=== PATIENT | male | born 1935 | race Caucasian/White ===

== ENCOUNTER 2019-11-15 18:30 | Observation (INO) | payer MEDICARE, OTHER ==
[2019-11-15] MEDS ORDERED: ALUM & MAG HYDROX-SIMETHICONE 30 ML, LIDOCAINE VISCOUS 2% 15 ML PO ONE ×2 (18:39)
[2019-11-15] MEDS ORDERED: PANTOPRAZOLE SODIUM IV 40 MG VIAL IV ONE (18:39)
[2019-11-15] MEDS ORDERED: METOPROLOL TARTRATE 25 MG TAB PO ONE (18:39)
[2019-11-15] MEDS ORDERED: ASPIRIN TABLET 325 MG TAB PO ONE (18:39)
--- NOTE | 2019-11-15 19:18 | RAD ---
XR CHEST 1 VIEW HISTORY: Chest pain. COMPARISON: None. FINDINGS: The heart size is enlarged. There is no pulmonary vascular congestion. No consolidation, pleural effusion, or pneumothorax is seen. No acute bony findings are seen. IMPRESSION: No evidence of acute cardiopulmonary disease. Electronically signed by: Aaron Luque MD 11/15/2019 7:17 PM CDT
[2019-11-15] MEDS ORDERED: METOPROLOL TARTRATE 50 MG TAB PO ONE (22:40)
[2019-11-15] MEDS ORDERED: SUCRALFATE 1 GM/10 ML 1 GM UD PO ONE (22:41)
--- NOTE | 2019-11-15 22:48 | ED.PDOC ---
History of Present Illness - General Chief Complaint: Chest Pain/ND Stated Complaint: CP Time Seen by Provider: 11/15/19 18:31 Source: patient Exam Limitations: no limitations - History of Present Illness Initial Comments: The patient is an 84-year-old male presenting to the emergency room secondary to chest pain that is been intermittent for the last 24 hours. Chest pain had gotten to about an 8 out of 10 at its worst about an hour prior to arrival. The patient reports that he drank a Coke and belched and most of the discomfort went away immediately. No nausea or vomiting. He does have a cardiac history. He did have a stent placed more than 5 years ago in the [facility]. He does take numerous cardiac medications. He has had a history of reflux past as well. No abdominal pain. No vomiting. No syncope. Chest pain is somewhat pressure-like and burning. No shortness of breath. Timing/Duration: 24 hours, intermittent, gone Severity: moderate Worsening Factors: other Associated Symptoms: chest pain Allergies/Adverse Reactions: Allergies NO KNOWN ALLERGY Allergy (Verified 11/15/19 18:39) Home Medications: Ambulatory Orders Aspirin (Buffered) 325 mg [Bufferin 325 mg] 325 mg PO DAILY 11/15/19 Finasteride 5 mg PO DAILY 11/15/19 Glucosamine 1,000 mg PO DAILY 11/15/19 Hydrochlorothiazide 12.5 mg PO DAILY 11/15/19 Levothyroxine Sodium 88 mg PO DAILY 11/15/19 Losartan Potassium 100 mg PO DAILY 11/15/19 Metoprolol Succinate [Metoprolol Succinate ER] 50 mg PO BID 11/15/19 Multivitamin 1 tablet PO DAILY 11/15/19 Simvastatin 20 mg PO DAILY 11/15/19 Verapamil HCl [Verapamil HCl Sr] 240 mg PO DAILY 11/15/19 Review of Systems - Review of Systems Constitutional: States: no symptoms reported EENTM: States: no symptoms reported Respiratory: States: no symptoms reported Cardiology: States: chest pain Gastrointestinal/Abdominal: States: no symptoms reported Genitourinary: States: no symptoms reported Musculoskeletal: States: no symptoms reported Skin: States: no symptoms reported Neurological: States: no symptoms reported Endocrine: States: no symptoms reported All other Systems: No Change from Baseline Past Medical History (General) - Patient Medical History Hx Stroke: No Hx Dementia: No Hx Asthma: No Hx of COPD: No Hx Cardiac Disorders: Yes - stent Hx Congestive Heart Failure: No Hx Thyroid Disease: No Hx Diabetes: No - Social History Hx Tobacco Use: Yes Family Medical History - Family History Mother Family History: Unknown Physical Exam - Physical Exam General Appearance: Alert, Comfortable, No apparent distress Eye Exam: bilateral normal Ears, Nose, Throat: hearing grossly normal, normal pharynx Neck: full range of motion, supple Respiratory: chest non-tender, lungs clear, normal breath sounds, no respiratory distress, no accessory muscle use Cardiovascular/Chest: normal peripheral pulses, regular rate, rhythm, no edema Peripheral Pulses: radial,right: 2+, radial,left: 2+ Gastrointestinal/Abdominal: non tender, soft Rectal Exam: deferred Back Exam: no CVA tenderness, no vertebral tenderness Extremity: normal range of motion, non-tender, normal inspection, no pedal edema, normal capillary refill 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 The patient does have a cardiac history. The first 2 sets of cardiac enzymes are negative. He is currently chest pain-free. The patient is receiving acid reducing medications and he is also received doses of aspirin and Lovenox. EKG is reassuring. Chest x-ray is reassuring. Given the patient's risk factors he will be brought in for the longer rule out. Continue telemetry monitoring. Patient is in agreement with the plan. Admit for continued care. The patient does have some elevated blood pressures here. He will be receiving his nightly doses of metoprolol and verapamil here. 11/15/19 22:51 chika gagnon [id number] - Results/Orders Results/Orders: Laboratory Tests 11/15/19 11/15/19 11/15/19 18:45 18:45 18:45 WBC 6.1 RBC 4.59 L Hgb 14.9 Hct 43.4 MCV 94.6 H MCH 32.4 H MCHC 34.3 RDW 13.7 Plt Count 189 MPV 7.8 Absolute Neuts (auto) 3.60 Absolute Lymphs (auto) 1.80 Absolute Monos (auto) 0.40 Absolute Eos (auto) 0.20 Absolute Basos (auto) 0.00 Neutrophils % 60.0 Lymphocytes % 29.5 Monocytes % 6.7 Eosinophils % 3.3 Basophils % 0.5 PT 10.3 INR 1.04 PTT (SP) 25.2 D-Dimer, Quantitative 234.0 Sodium 139 Potassium 3.5 L Chloride 101 Carbon Dioxide 28 Anion Gap 13.5 BUN 12 Creatinine 0.94 BUN/Creatinine Ratio 12.8 Random Glucose 140 H Serum Osmolality 279.6 Calcium 9.3 Magnesium 1.8 Total Bilirubin 0.9 AST 24 ALT 18 Alkaline Phosphatase 64 Creatine Kinase 77 CK-MB (CK-2) 2.8 CK-MB (CK-2) % Not Reportable Troponin I < 0.02 B-Natriuretic Peptide 80.6 Serum Total Protein 7.4 Albumin 4.3 Globulin 3.1 Albumin/Globulin Ratio 1.4 Amylase 47 Lipase 28 TSH 6.64 H 11/15/19 21:52 WBC RBC Hgb Hct MCV MCH MCHC RDW Plt Count MPV Absolute Neuts (auto) Absolute Lymphs (auto) Absolute Monos (auto) Absolute Eos (auto) Absolute Basos (auto) Neutrophils % Lymphocytes % Monocytes % Eosinophils % Basophils % PT INR PTT (SP) D-Dimer, Quantitative Sodium Potassium Chloride Carbon Dioxide Anion Gap BUN Creatinine BUN/Creatinine Ratio Random Glucose Serum Osmolality Calcium Magnesium Total Bilirubin AST ALT Alkaline Phosphatase Creatine Kinase 68 CK-MB (CK-2) 2.6 CK-MB (CK-2) % Not Reportable Troponin I < 0.02 B-Natriuretic Peptide Serum Total Protein Albumin Globulin Albumin/Globulin Ratio Amylase Lipase TSH Chest x-ray showed no acute pathology. EKG showed normal sinus rhythm at 65 bpm normal axis. Early right bundle branch block. Normal R wave progression. No ST segment or T wave changes indicative of acute ischemia. Departure - Departure Clinical Impression: Uncontrolled hypertension Chest pain Qualifiers: Chest pain type: unspecified Qualified Code(s): R07.9 - Chest pain, unspecified Disposition: Admit Patient Departure Forms: ED Discharge - Pt. Copy, Patient Portal Self Enrollment Referrals: JOSH STODDARD [Primary Care Provider] - 1-2 Weeks Home Medications: Ambulatory Orders Aspirin (Buffered) 325 mg [Bufferin 325 mg] 325 mg PO DAILY 11/15/19 Finasteride 5 mg PO DAILY 11/15/19 Glucosamine 1,000 mg PO DAILY 11/15/19 Hydrochlorothiazide 12.5 mg PO DAILY 11/15/19 Levothyroxine Sodium 88 mg PO DAILY 11/15/19 Losartan Potassium 100 mg PO DAILY 11/15/19 Metoprolol Succinate [Metoprolol Succinate ER] 50 mg PO BID 11/15/19 Multivitamin 1 tablet PO DAILY 11/15/19 Simvastatin 20 mg PO DAILY 11/15/19 Verapamil HCl [Verapamil HCl Sr] 240 mg PO DAILY 11/15/19 Decision To Admit - Decistion To Admit Decision to Admit Reason: Medical Nature Decision to Admit Date: 11/15/19 Decision to Admit Time: 22:52
[2019-11-15] MEDS ORDERED: ENOXAPARIN SODIUM 40 MG/0.4 ML SYG SUBCU ONE (23:15)
[2019-11-15] MEDS ORDERED: ENOXAPARIN SODIUM 100 MG/ML SYG SUBCU ONE (23:15)
[2019-11-15] MEDS ORDERED: VERAPAMIL ER 120 MG TAB PO ONE (23:23)
[2019-11-16] MEDS ORDERED: MORPHINE SULFATE INJ 10 MG/ML VIAL IV PRN (01:49)
[2019-11-16] MEDS ORDERED: NITROGLYCERIN 0.4 MG 25 EA TAB SL PRN (01:49)
[2019-11-16] MEDS ORDERED: ACETAMINOPHEN 325 MG TAB PO PRN (01:49)
[2019-11-16] MEDS ORDERED: SODIUM CHLORIDE 0.9% (FLUSH) 10 ML SYG IV PRN (01:49)
[2019-11-16] MEDS ORDERED: IV SET AND CAP CHANGE INJ INJ SCH (02:00)
[2019-11-16] MEDS ORDERED: LEVOTHYROXINE SODIUM 0.088 MG TAB ONE (05:17)
[2019-11-16] MEDS ORDERED: LEVOTHYROXINE SODIUM PO SCH (06:30)
[2019-11-16] MEDS ORDERED: LEVOTHYROXINE SODIUM 0.088 MG TAB PO SCH (06:30)
[2019-11-16] MEDS ORDERED: PANTOPRAZOLE SODIUM IV 40 MG VIAL IV SCH (06:30)
[2019-11-16] MEDS ORDERED: hydroCHLOROthiazide 12.5 MG CAP PO SCH (09:00)
[2019-11-16] MEDS ORDERED: SODIUM CHLORIDE 0.9% (FLUSH) 10 ML SYG IV SCH (09:00)
[2019-11-16] MEDS ORDERED: LOSARTAN POTASSIUM 100 MG TAB PO SCH (09:00)
[2019-11-16] MEDS ORDERED: FINASTERIDE 5 MG TAB PO SCH (09:00)
[2019-11-16] MEDS ORDERED: VERAPAMIL ER 120 MG TAB PO SCH (09:00)
[2019-11-16 09:51] VITALS: BP 153/74; TEMP 97; O2SAT 95
--- NOTE | 2019-11-16 18:12 | SSS ---
SUPERVISING PHYSICIAN: Oscar Hobson M.D. CHIEF COMPLAINT: Chest pain. ADMISSION DIAGNOSIS: 1. Chest pain. 2. Uncontrolled hypertension. 3. Hypothyroidism. DISCHARGE DIAGNOSIS: 1. Chest pain, negative for acute coronary syndrome with troponins being negative. No changes in EKG. The patient pain free, etiology uncertain, likely related to gastric distention but negative for acute coronary syndrome. 2. Hypertension, chronic, controlled. 3. Hypothyroidism on supplementation with elevated TSH. HISTORY OF PRESENT ILLNESS: Mr. Brian is an 84 year-old male patient with a history of hypertension and hypothyroidism that presents to the Emergency Room secondary to chest pain that had been intermittent for 24 hours prior to his admission. He endorsed that his chest pain had gotten to about an 8/10 at its worst about an hour prior to arrival. He drank a Coke, belched and had almost instant relief. He had no nausea or vomiting or diaphoresis. 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 He has had a history apparently of gastroesophageal reflux disease and was on a proton pump inhibitor at one point, but was taken off several years previously. He denied any nausea, vomiting, diarrhea, abdominal pains, any syncope. He describes the chest pain more of a pressure-like and burning, and again was relieved with belching after drinking a Coke. His initial workup in the Emergency Room showed his troponins were all within normal limits at less than 0.02 times 2 prior to admission. TSH was a little elevated at 6.64 but he is on thyroid medicine for hypothyroidism. A chest x-ray showed no evidence of acute cardiopulmonary disease as per radiology interpretation for a single view chest. His initial EKG in the Emergency Room showed a normal sinus rhythm at 65 [id number] with a right bundle branch block. No indication of an ST segment or T wave changes to indicate acute ischemia. Initially on presentation to the Emergency Room, his vital signs showed he was hypertensive with a blood pressure of 184/96, heart rate 60, satting 97% on room air. In the Emergency Room, he was given Verapamil, Carafate and some Protonix. He was also given a dose of Lopressor and some morphine. Again, his symptoms did resolve shortly after admission to the Emergency Room but given his advanced age and previous history of stent and the nature of his complaint being chest pains, he was placed in observation for attempted rule out to ensure he was negative for acute coronary syndrome. PAST MEDICAL HISTORY: 1. Hypertension. 2. Hypothyroidism. PAST SURGICAL HISTORY: No major surgeries listed other than: 1. Bilateral cataracts. 2. Stent placement 5 years previous. HOME MEDICATIONS: 1. Levothyroxine 88 mcg daily. 2. Verapamil 240 mg daily. 3. Simvastatin 20 mg daily. 4. Metoprolol 50 mg b.i.d. 5. Losartan 100 mg daily. 6. Hydrochlorothiazide 12.5 mg daily. 7. Aspirin 81 mg daily. 8. Multivitamin daily. 9. Glucosamine 1,000 mg daily. 10. Finasteride 5 mg daily. ALLERGIES: NO KNOWN DRUG ALLERGIES. FAMILY HISTORY: Father at age 52 secondary to a myocardial infarction. Mom at age 90 from advanced age. He has 4 boys, one that is . 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 He currently lives in [place]. He is . He has no history of tobacco or alcohol usage. Denies any illicit drug use. REVIEW OF SYSTEMS: CONSTITUTIONAL: Denies any fevers, chills, general malaise or unexplained weight loss. HEENT: Denies any headaches, vision changes, sore throat, ear aches, nasal congestion. RESPIRATORY: Denies any shortness of breath, coughing or wheezing. CARDIOVASCULAR: Chest pains as noted in History of Present Illness. GASTROINTESTINAL: Denies any nausea, vomiting, diarrhea, constipation or abdominal pain. GENITOURINARY: Denies any dysuria, hematuria, polyuria. MUSCULOSKELETAL: Denies any joint swelling or arthralgias. SKIN: Denies any lesions, rashes, moles or unexplained changes. NEUROLOGIC: Denies any ataxia, seizures, syncopal episodes or other focal neurological or sensory deficits. ENDOCRINE: Denies any polydipsia or polyphagia or other symptoms. HEMATOLOGIC: Denies any unexplained bleeding, bruising or transfusion reactions. PHYSICAL EXAMINATION: VITAL SIGNS: Initially on presentation to the Emergency Room, temperature 96.7, pulse 60, blood pressure 184/96, satting 97% on room air. On discharge, temperature 97, pulse 53, blood pressure 153/74, respirations 20, satting 95% on room air. Admission weight was 103.8 kg. Body mass index was 31. GENERAL: At time of examination and on discharge, the patient was resting comfortably. Did not appear to be in any distress. He had no complaints. He was alert. HEENT: Tympanic membranes clear bilaterally. Oropharynx is pink, moist without any lesions. NECK: Supple, nontender with full range of motion. No jugular venous distention noted. CHEST: Clear to auscultation bilaterally without any rhonchi, wheezes or rales. CARDIOVASCULAR: Regular rate and rhythm without any appreciable murmurs, gallops, or rubs. ABDOMEN: Soft, nontender. Positive bowel sounds. BACK: Without any CVA or vertebral tenderness. EXTREMITIES: Without any clubbing, cyanosis or edema. NEUROLOGIC: He is alert and oriented times three. Cranial nerves II-XII are grossly intact. Facial features are symmetrical. Extraocular movements are within normal limits. There is no nystagmus noted. SKIN: Warm, pink and dry. LABORATORY: White count 6,100, hemoglobin 14.9, hematocrit 43.4. RBC indices were showing a macrocytosis with an MCV of 94, MCH 32, platelet count 189,000. Differential showed to be without a left shift. Coagulation studies showed normal PT, PTT and D-dimer. Chemistries just showed a mildly low potassium at 3.5, glucose 140. Liver functions were all within normal limits. Creatinine 0.94. He had 3 sets of troponins that were less than 0.02. CK on discharge was 75. Lipid panel showed triglycerides of 65, cholesterol 137, LDL 66, HDL 51. TSH was elevated at 6.4. Lipase 28, amylase 47. RADIOLOGY: Chest x-ray per radiology interpretation of a single view chest was without any acute cardiopulmonary disease. EKG on admission showed normal sinus rhythm at 65 with a right bundle branch block. No ST segment or T wave changes EKG of discharge showed mild bradycardia at 57 with a continued right bundle branch block. No ST or T wave changes were noted to indicate acute ischemia. No acute changes from initial EKG to discharge. HOSPITAL COURSE: Mr. Brian was admitted for extended rule out of chest pain. He had no recurrence of his pain during his short stay. He had no significant findings on EKG. No changes. No ectopy. No further complaints. He was found to be stable without any evidence of acute coronary syndrome and could be discharged to followup in the outpatient setting. ASSESSMENT: As noted above on both admission and discharge assessments. PLAN: Mr. Brian was discharged to [facility] with a primary care provider at [facility], Dr. Humphrey, on 11/22/19 at 9:00 AM. He was given instructions to go by the office after discharge to fill out paperwork. His listed strings teacher is Dr[facility]. He will need to followup with them at some point. He probably needs to have a stress done. I believe his last stress test was done within the last 5 to 7 years. All other medications prior to hospitalization were continued. The only medication he was prescribed at discharge was p.r.n.Nitroglycerin 0.4 mg for chest pain. He was to follow his regular diet as tolerated. Increase activity but no strenuous activity until he was seen in followup; with Dr. Humphrey. His TSH was elevated but he is already on thyroid replacement. I did not change the dosage on this as he will need a full workup at time of followup in the clinic. He was given warnings to return to the Emergency Department should he have any return of symptoms or other concerning symptoms. Condition on discharge was stable and improved. DISPOSITION: Discharged home for clinical followup. #[id number] MTDD
[2019-11-16] MEDS ORDERED: ENOXAPARIN SODIUM 40 MG/0.4 ML SYG SUBCU SCH (21:00)
[2019-11-16] MEDS ORDERED: SIMVASTATIN 20 MG TAB PO SCH (21:00)
[2019-11-16] MEDS ORDERED: VERAPAMIL ER 120 MG TAB PO ONE (22:40)
[2019-11-17] MEDS ORDERED: ASPIRIN TABLET 325 MG TAB PO SCH (09:00)
== END 2019-11-16 11:43 | disposition home or self-care (01) ==
LOC: ER 18:30 → MS 18:31 → UNDOADMOB 11-16 01:07 → UNDODISOB 11-16 11:43
PROVIDERS: ADMIT Nurse Practitioner Acute Care; ATTEND Nurse Practitioner Family
DX: R07.89 Other chest pain (principal); I10 Essential (primary) hypertension; E03.9 Hypothyroidism, unspecified; I45.10 Unspecified right bundle-branch block; I35.0 Nonrheumatic aortic (valve) stenosis; I08.3 Combined rheumatic disorders of mitral, aortic and tricuspid valves; K21.9 Gastro-esophageal reflux disease without esophagitis; Z79.82 Long term (current) use of aspirin; Z79.899 Other long term (current) drug therapy; Z95.5 Presence of coronary angioplasty implant and graft; Z87.891 Personal history of nicotine dependence; Z82.49 Family history of ischemic heart disease and other diseases of the circulatory system
CPT/HCPCS: 96374; 96376; 96372; J1650 ×2; A4216; 85379; 82553 ×3; 80053; 80061; 36415 ×3; 82150; 85025; 82550 ×3; 83690; 83735; 85730; 85610; 84443; 84484 ×3; 83880; 71045; 99285; 93306; 93005 ×2; G0378

== ENCOUNTER → 2020-04-08 | Outpatient (CLI) | payer MEDICARE, OTHER | LOC: GMA CAST 11:33 | PROVIDERS: ATTEND Family Medicine Sports Medicine | DX: N40.0 Benign prostatic hyperplasia without lower urinary tract symptoms (principal); E03.9 Hypothyroidism, unspecified; I10 Essential (primary) hypertension ==

== ENCOUNTER → 2020-04-23 | Outpatient (CLI) | payer MEDICARE, OTHER | LOC: GMA CAST 11:32 | PROVIDERS: ATTEND Family Medicine Sports Medicine | DX: N40.0 Benign prostatic hyperplasia without lower urinary tract symptoms (principal) ==